=== PATIENT | male | born 1945 | race Two or more races ===

== ENCOUNTER 2017-12-16 01:14 | Inpatient (IN) | payer MEDICARE ==
[~2017-12-16] VITALS: Ht 175.3 cm; Wt 97.5 kg
--- NOTE | 2017-12-16 01:25 | NUR ---
MEDICALLY CLEARED BY DR CHESTER
[2017-12-16] MEDS ORDERED: ASPI-605 PO (01:29)
[2017-12-16] MEDS ORDERED: ZOLP5TAB8 PO (01:29)
[2017-12-16] MEDS ORDERED: RISP3TAB14 PO (01:29)
[2017-12-16] MEDS ORDERED: DOCU100C36 PO (01:29)
[2017-12-16] MEDS ORDERED: SERT100T PO (01:29)
[2017-12-16] MEDS ORDERED: LORA1TAB PO (01:29)
[2017-12-16] MEDS ORDERED: ACET-2154 PO (01:29)
--- NOTE | 2017-12-16 01:35 | NUR ---
TRANSFERED TO [facility]. NO DISTRESS NOTED
--- NOTE | 2017-12-16 01:40 | NUR ---
GPS: 72 YEAR OLD MALE ADMITTED TO [facility] FOR 5150/GD UNDER DR JOHN/MICHAEL, FROM ER VIA [facility]. A/O X3 AMBULATORY. COOPERATIVE WITH NURSING CARE. NO AGITATION NOTED.ASSISTED WITH SHOWER. V/S WNL.CONTINUE MONITORING FOR SAFETY.
[2017-12-16] MEDS ORDERED: MAGNESIUM HYDROXIDE 30 ML LIQUID UDC PO PRN (02:15)
[2017-12-16 03:52] VITALS: BP 105/65
[2017-12-16] MEDS: LORAZEPAM 1 MG TABLET PO PRN ×2 (04:02→09:26)
--- NOTE | 2017-12-16 06:40 | NUR ---
GPS: REMAIN COOPERATIVE WITH NURSING CARE. ATIVAN GIVEN FOR ANXIETY PER PATIENT REQUESTED. NO SLEEP. RESTING IN BED COMFORTABLY. CONTINUE PLAN OF CARE.
[2017-12-16 07:30] VITALS: BP 103/57
[2017-12-16] MEDS: ACETAMINOPHEN 325 MG TABLET PO PRN ×3 (07:44→21:51)
--- NOTE | 2017-12-16 08:00 | NUR ---
GPS: Pt awake, ambulating ad nimo in unit with standby assist as needed. Pt A&O x4. Romansh speaking. No acute distress noted. Continues to be cooperative with plan of care. Able to make needs known. Noted pacing hallways in the beginning of shift. Complained of mild headache and requested for Tylenol PRN. Administered as ordered. Will monitor for effectiveness. Will continue to monitor for change.
--- NOTE | 2017-12-16 10:48 | NUR ---
GPS: Pt requesting for Zoloft. Per pt, he was taking Zoloft at home BID x20yrs and needs to continue the medication. Spoke with Dr. Vela and relayed pt's concern. Per MD, he will come and examine pt prior to prescribing psych medication. Notified pt and pt became slightly agitated. Verbalized to just discharge him. Explained risks and benefits to pt. Gave pt time to calm down. Will continue to monitor for further behavioral manifestations.
--- NOTE | 2017-12-16 12:50 | NUR ---
Followed up with Ezra Slater DNP regarding pt's med reconciliation. Per Ezra, he will do it. No new orders at this time.
--- NOTE | 2017-12-16 15:49 | NUR ---
Initial DC Plan: Patient currently lives at home with his roommate Monserrat[[birth year] 09/[address] [place], [place] ; [phone]]. Patient's daughter Danelle [[phone]] feels patient should go to a SNF upon discharge. SW will follow up with MD, patient, and patient's roommate and daughter to discuss most appropriate discharge plans. Patient will be provided a brief substance abuse intervention for alcohol abuse. SW will form a safe and proper discharge.
[2017-12-16 16:20] VITALS: BP 129/65
[2017-12-16] MEDS ORDERED: ACETAMINOPHEN 325 MG TABLET PO PRN (17:30)
--- NOTE | 2017-12-16 18:23 | NUR ---
GPS: Pt remained in his room for most of the day. Pt lacked interest in attending activities and socializing with peers. Noted talking to himself at times. Mild pain managed with Tylenol. Ativan 1mg PO PRN given for anxiety. Seen and examined by Erza Slater, ALEJANDRO and meds reconciled. Per Danelle (daughter), her sister will come tomorrow to bring clothes for pt. Gave her instructions on what is appropriate to bring for pt safety and she agreed.
[2017-12-16 20:00] VITALS: BP 101/61
--- NOTE | 2017-12-16 21:30 | NUR ---
Patient complains of headache and asked for a pain pill. Tylenol PRN given per MD order. New orders for Buspar and Risperdal administered. Patient cooperative and compliant.
[2017-12-16] MEDS: busPIRone 5 MG TABLET PO SCH (21:50)
[2017-12-16] MEDS: risperiDONE 1 MG TABLET PO SCH (21:50)
[2017-12-17] MEDS: MAG HYDROX/AL HYDROX/SIMETH 30 ML LIQUID UDC PO PRN ×4 (00:42→22:26)
[2017-12-17] MEDS: ACETAMINOPHEN 325 MG TABLET PO PRN ×2 (05:30→11:42)
--- NOTE | 2017-12-17 05:57 | NUR ---
Maalox PRN given as ordered for upset stomach at 0045; Tylenol administered for headache at 0530. Will continue to monitor.
--- NOTE | 2017-12-17 06:56 | NUR ---
Pt sleeping at this time, no s/s of distress. Slept intermittently. Meds given, all other needs attended. Frequent checks done. Endorsed accordingly.
[2017-12-17 07:30] VITALS: BP 97/49
[2017-12-17] MEDS: ASPIRIN EC 81 MG TABLET.DR PO SCH (09:11)
[2017-12-17] MEDS: SERTRALINE HCL 100 MG TABLET PO SCH (09:11)
[2017-12-17] MEDS: risperiDONE 1 MG TABLET PO SCH ×2 (09:12→20:33)
[2017-12-17] MEDS: busPIRone 5 MG TABLET PO SCH ×3 (09:12→17:17)
[2017-12-17] MEDS: DOCUSATE SODIUM 100 MG CAPSULE PO SCH ×2 (09:12→17:17)
[2017-12-17] MEDS: LORAZEPAM 1 MG TABLET PO PRN (11:42)
--- NOTE | 2017-12-17 13:26 | NUR ---
at approxiatemately 12pm i was informed that patient had fallen in his room earlier in day unwitnessed and no evidence of bruising or c/o pain on any body area. patient c/o headache and medicated with tylenol 650mg for headache . patient has been ambulatoryseen by DR. blade VO AND PT DENIED ANY FALL OR ANY INJURY, BUT C/O SHOULDER PAIN. WILL CONTINUE TO MONITOR C/O RIGHT SHOULDER PAIN WILL CALL MEDICAL DOCTOR FOR XRAYS OF RIGHT SHOULDER PATIENT REMAINS ASYMPTOMATIC AND AMBULATORY ON UNIT OFF AND ON
[2017-12-17 15:48] VITALS: BP 109/63
[2017-12-17 20:24] VITALS: BP 108/64
[2017-12-18] MEDS: SUCRALFATE 1 G/10 ML LIQUID UDC PO SCH ×5 (00:33→23:16)
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
[2017-12-18 07:30] VITALS: BP 109/67
[2017-12-18] MEDS: busPIRone 5 MG TABLET PO SCH ×3 (08:56→17:23)
[2017-12-18] MEDS: ASPIRIN EC 81 MG TABLET.DR PO SCH (08:56)
[2017-12-18] MEDS: DOCUSATE SODIUM 100 MG CAPSULE PO SCH ×2 (08:56→17:24)
[2017-12-18] MEDS: risperiDONE 1 MG TABLET PO SCH ×2 (08:56→20:19)
[2017-12-18] MEDS: SERTRALINE HCL 100 MG TABLET PO SCH (08:56)
[2017-12-18] MEDS: FENOFIBRATE NANOCRYSTALLIZED 48 MG TABLET PO SCH (10:32)
[2017-12-18 16:05] VITALS: BP 125/83
--- NOTE | 2017-12-18 18:05 | NUR ---
PATIENT REMAINS ISOLATIVE AND WITHDRAWN WITH NO DISCLOUSURE TO THIS STAFF , NO C/O PAIN OR DISTRESS ,ORAL INTAKEN Q S AND VOIDING NO BM PER PT , CONTINUE TO MONITOR FOR SAFETY
[2017-12-18 20:00] VITALS: BP 117/68
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
[2017-12-19] MEDS: SUCRALFATE 1 G/10 ML LIQUID UDC PO SCH ×4 (06:09→20:52)
[2017-12-19 07:30] VITALS: BP 118/68
[2017-12-19] MEDS: ASPIRIN EC 81 MG TABLET.DR PO SCH (08:26)
[2017-12-19] MEDS: busPIRone 5 MG TABLET PO SCH ×3 (08:26→16:30)
[2017-12-19] MEDS: risperiDONE 1 MG TABLET PO SCH (08:26)
[2017-12-19] MEDS: SERTRALINE HCL 100 MG TABLET PO SCH (08:26)
[2017-12-19] MEDS: FENOFIBRATE NANOCRYSTALLIZED 48 MG TABLET PO SCH (08:27)
[2017-12-19] MEDS: DOCUSATE SODIUM 100 MG CAPSULE PO SCH ×2 (08:27→16:30)
--- NOTE | 2017-12-19 11:54 | NUR ---
Firearms Reporting: DAVIDE submitted Mental Health Report to [facility] on 12/19.
[2017-12-19 15:36] VITALS: BP 118/73
[2017-12-19 20:00] VITALS: BP 140/79
[2017-12-19] MEDS: risperiDONE 2 MG TABLET PO SCH (20:52)
--- NOTE | 2017-12-19 21:00 | NUR ---
RECEIVED PATIENT IN HIS BED. HE IS NOTED A/O X 2, HE IS ABLE TO AMBULATE WITH STEADY GAIT WITH THE AID OF A FWW AND ABLE TO MAKE HIS NEEDS KNOWN. PATIENT ABLE TO MAKE GOOD EYE CONTACT. HOWEVER; NOTED WITHDRAWN, DELUSIONAL (BEING CONTROLLED BY SOMETHING INSIDE HIS HEAD) HE STATED, "THERE IS SOMETHING IN MY HEAD THAT IS BEING THERE FOR A LONG TIME". PATIENT NOTED WITH FAIR INSIGHT AND JUDGMENT TO THE REASON FOR HIS HOSPITALIZATION TO M[facility]. HE STATED, "THIS MEDICATION IS HELPING ME". HE IS COMPLIANT WITH MEDICATION REGIMENT, DIET AND PLAN OF CARE ST THIS TIME. DENIES SI/HI. DENIES AH/VH/ HE IS ABLE TO CFS. SAFETY EMPHASIS. WILL CONTINUE TO MONITOR CLOSELY.
[2017-12-20] MEDS: TEMAZEPAM 7.5 MG CAPSULE PO PRN ×2 (01:14→23:33)
--- NOTE | 2017-12-20 01:15 | NUR ---
PATIENT NOTED AWAKE IN HIS BED, UNABLE TO FALL ASLEEP. TEMAZEPAM 7.5MG PO PRN WAS GIVEN FOR INSOMNIA. WILL CONTINUE TO MONITOR CLOSELY.
--- NOTE | 2017-12-20 02:17 | NUR ---
PATIENT NOTED SLEEPING COMFORTABLE IN HIS BED.
[2017-12-20] MEDS: ACETAMINOPHEN 325 MG TABLET PO PRN ×3 (06:22→16:54)
[2017-12-20] MEDS: SUCRALFATE 1 G/10 ML LIQUID UDC PO SCH ×4 (06:42→20:37)
[2017-12-20 07:30] VITALS: BP 107/65
[2017-12-20] MEDS: busPIRone 5 MG TABLET PO SCH ×3 (08:28→16:45)
[2017-12-20] MEDS: risperiDONE 2 MG TABLET PO SCH ×2 (08:28→20:37)
[2017-12-20] MEDS: SERTRALINE HCL 100 MG TABLET PO SCH (08:29)
[2017-12-20] MEDS: DOCUSATE SODIUM 100 MG CAPSULE PO SCH ×2 (08:29→16:45)
[2017-12-20] MEDS: ASPIRIN EC 81 MG TABLET.DR PO SCH (08:29)
[2017-12-20] MEDS: FENOFIBRATE NANOCRYSTALLIZED 48 MG TABLET PO SCH (08:30)
[2017-12-20 16:11] VITALS: BP 112/69
[2017-12-20 20:26] VITALS: BP 106/63
[2017-12-20 20:29] VITALS: BP 123/65
[2017-12-21] MEDS: SUCRALFATE 1 G/10 ML LIQUID UDC PO SCH ×4 (06:30→20:50)
--- NOTE | 2017-12-21 06:44 | NUR ---
RECEIVED Pt IN BED AWAKE, A+Ox2 TO SELF AND PLACE. SOMEWHAT IRRITABLE, Pt STATED, I DON'T CARE WHAT DAY IT IS, WHEN ASKED WHAT BROUGHT HIM TO THE HOSPITAL, Pt STATED, I DON'T FEEL LIKE TALKING ABOUT IT. Pt IS GUARDED AND GIVES MINIMAL DISCLOSURE. Pt PRESENTS SOMEWHAT ANXIOUS AND RESTLESS, HAS EPISODES WHERE HE IS DEMANDING HIS CLOTHING THAT IS BEING LAUNDERED AND EXTRA BLANKETS. PER Pt REQUEST, RESTORIL 7.5mg ADMINISTERED WITH GOOD EFFECT. Pt PRESENTS WITH THOUGHT BLOCKING AND DELAYED, PRESSURED SPEECH. DENIES SI/HI/AH/VH. EXHIBITS BLUNTED AFFECT. COMPLIANT WITH HS MEDICATIONS, COOPERATIVE WITH CARE. VS STABLE, DENIES PAIN, IN NO ACUTE PHYSICAL DISTRESS. SLEPT 5 HOURS. NO COMBATIVE OR AGGRESSIVE BEHAVIORS DURING SHIFT.
[2017-12-21 07:30] VITALS: BP 112/62
[2017-12-21] MEDS: FENOFIBRATE NANOCRYSTALLIZED 48 MG TABLET PO SCH (08:10)
[2017-12-21] MEDS: ACETAMINOPHEN 325 MG TABLET PO PRN ×2 (08:10→20:57)
[2017-12-21] MEDS: ASPIRIN EC 81 MG TABLET.DR PO SCH (08:10)
[2017-12-21] MEDS: SERTRALINE HCL 100 MG TABLET PO SCH (08:10)
[2017-12-21] MEDS: risperiDONE 2 MG TABLET PO SCH ×2 (08:10→20:50)
[2017-12-21] MEDS: DOCUSATE SODIUM 100 MG CAPSULE PO SCH ×2 (08:10→16:14)
[2017-12-21] MEDS: busPIRone 5 MG TABLET PO SCH ×3 (08:10→16:14)
[2017-12-21 15:21] VITALS: BP 100/50
[2017-12-21 20:17] VITALS: BP 97/54
--- NOTE | 2017-12-21 21:00 | NUR ---
RECEIVED PATIENT IN THE HALLWAY. HE IS NOTED A/O X 2. HE IS ABLE TO AMBULATE WITH STEADY GAIT WITH THE AID OF A FWW. PATIENT NOTED LESS WITHDRAWN, FAIR INSIGHT AND JUDGMENT TO THE REASON FOR HIS ADMISSION. HE DENIES HEARING VOICES, DENIES SI/AH/VH. HE STATED, "RISPERIDONE SINCE TO HELP ME". SHE ALSO C/O MILD LOWER BACK PAIN. TYLENOL 650MG PO PRN WAS GIVEN FOR PAIN. PT COMPLIANT WITH MEDICATION REGIMENT, DIET AND PLAN OF CARE AT THIS TIME. WILL CONTINUE TO MONITOR.
--- NOTE | 2017-12-21 22:00 | NUR ---
TYLENOL 650MG PO PRN FOR BACK PAIN WAS EFFECTIVE. PT SLEEPING COMFORTABLE IN HIS ROOM.
[2017-12-22] MEDS: LORAZEPAM 1 MG TABLET PO PRN (03:25)
--- NOTE | 2017-12-22 03:30 | NUR ---
PATIENT APPROACHED THE NURSING STATION AND STATED THAT HE IS FEELING ANXIOUS AND UNABLE TO GO BACK TO SLEEP. ATIVAN 1MG PO PRN WAS GIVEN. WILL CONTINUE TO MONITOR CLOSELY.
[2017-12-22] MEDS: ACETAMINOPHEN 325 MG TABLET PO PRN ×2 (05:59→13:27)
--- NOTE | 2017-12-22 06:04 | NUR ---
ATIVAN 1MG PO PRN FOR ANXIETY PARTIALLY EFFECTIVE. PATIENT IN THE DAY ROOM WATCHING TV. HE REQUESTED PO PAIN MEDICATION FOR MILD LOWER BACK PAIN. TYLENOL 650MG PO PRN WAS GIVEN. PATIENT SLEPT 5.30HRS THROUGH THE NIGHT. HE REFUSED SLEEPING PILL LAST NIGHT. WILL CONTINUE TO MONITOR.
[2017-12-22] MEDS: SUCRALFATE 1 G/10 ML LIQUID UDC PO SCH ×4 (06:42→20:07)
[2017-12-22 08:00] VITALS: BP 105/51
[2017-12-22] MEDS: risperiDONE 1 MG TABLET PO SCH ×2 (09:07→20:07)
[2017-12-22] MEDS: SERTRALINE HCL 100 MG TABLET PO SCH (09:07)
[2017-12-22] MEDS: FENOFIBRATE NANOCRYSTALLIZED 48 MG TABLET PO SCH (09:07)
[2017-12-22] MEDS: busPIRone 5 MG TABLET PO SCH ×3 (09:07→16:46)
[2017-12-22] MEDS: ASPIRIN EC 81 MG TABLET.DR PO SCH (09:08)
[2017-12-22] MEDS: DOCUSATE SODIUM 100 MG CAPSULE PO SCH ×2 (09:08→16:46)
--- NOTE | 2017-12-22 12:43 | NUR ---
patient remains isolative and withdrawn in room without self disclousure , denies r i s and no c/o pain encourage to ventilation feelings, continue to monitor.
[2017-12-22 16:00] VITALS: BP 122/75
[2017-12-22 20:00] VITALS: BP 102/51
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
[2017-12-23] MEDS: TEMAZEPAM 7.5 MG CAPSULE PO PRN (00:10)
--- NOTE | 2017-12-23 00:17 | NUR ---
PATIENT NOTED AWAKE IN HIS ROOM. PT WAS OFFERED A "SLEEPING PILL" AND HE AGREED. TEMAZEPAM 7.5MG PO PRN FOR INSOMNIA WAS GIVEN. WILL CONTINUE TO MONITOR CLOSELY.
--- NOTE | 2017-12-23 06:20 | NUR ---
PATIENT SLEPT FOR APPROX 3.30HRS THROUGH THE NIGHT. CONTINUE MEDICATION COMPLIANT.
[2017-12-23] MEDS: SUCRALFATE 1 G/10 ML LIQUID UDC PO SCH ×4 (06:50→20:02)
[2017-12-23 07:30] VITALS: BP 104/57
--- NOTE | 2017-12-23 08:00 | NUR ---
RECEIVE Pt IN BED, AWAKE, A/O X 2, ABLE TO MAKE HIS NEEDS KNOWN AND ABLE TO AMBULATE WITH STEADY GAIT. Pt IS CALM AND COMPLIANT WITH MEDS AND CARE STAFF. SAFETY WAS EMPHASIZED, Pt ADVISED TO USE FWW WHEN AMBULATING. WILL CONTINUE TO MONITOR.
[2017-12-23] MEDS: risperiDONE 1 MG TABLET PO SCH ×2 (08:45→20:02)
[2017-12-23] MEDS: SERTRALINE HCL 100 MG TABLET PO SCH (08:45)
[2017-12-23] MEDS: busPIRone 5 MG TABLET PO SCH ×3 (08:45→16:44)
[2017-12-23] MEDS: ASPIRIN EC 81 MG TABLET.DR PO SCH (08:45)
[2017-12-23] MEDS: DOCUSATE SODIUM 100 MG CAPSULE PO SCH ×2 (08:45→16:44)
[2017-12-23] MEDS: FENOFIBRATE NANOCRYSTALLIZED 48 MG TABLET PO SCH (08:46)
[2017-12-23] MEDS: ACETAMINOPHEN 325 MG TABLET PO PRN (11:07)
--- NOTE | 2017-12-23 11:15 | NUR ---
Pt COMPLAINED OF MILD LOWER BACK PAIN, GIVEN TYLENOL ES 650 MG PO PRN. WILL CONTINUE TO MONITOR Pt.
[2017-12-23 14:29] VITALS: BP 106/53
[2017-12-23 20:03] VITALS: BP 116/54
[2017-12-23] MEDS ORDERED: risperiDONE 2 MG TABLET PO SCH (21:00)
[2017-12-23] MEDS ORDERED: risperiDONE 0.5 MG TABLET PO SCH (21:00)
[2017-12-24] MEDS: LORAZEPAM 1 MG TABLET PO PRN (02:33)
--- NOTE | 2017-12-24 02:35 | NUR ---
GPS: PATIENT C/O ANXIETY. ATIVAN 1 MG PO GIVEN PER PATIENT REQUEST.
--- NOTE | 2017-12-24 03:35 | NUR ---
GPS: PATIENT IS CALM NOW.RESTING IN BED COMFORTABLY.
--- NOTE | 2017-12-24 06:34 | NUR ---
GPS: REMAIN CALM AND COOPERATIVE WITH MEDICATIONS AND CARE. SLEPT 5:30 HRS THROUGH THE NIGHT. NO BEHAVIOR PROBLEM NOTED AT THIS TIME.CONTINUE PLAN OF CARE.
[2017-12-24] MEDS: SUCRALFATE 1 G/10 ML LIQUID UDC PO SCH ×4 (06:39→20:02)
[2017-12-24 08:00] VITALS: BP 109/62
--- NOTE | 2017-12-24 09:15 | NUR ---
RECEIVED Pt IN BED, AWAKE, A/O X 2, PLEASANT AND CALM, COMPLIANT WITH MEDS AND COOPERATIVE WITH CARE STAFF, NO AGGRESSIVE BEHAVIOR NOTED. CLEAR BUT NOTED PRESSURED SPEECH, Pt IS ABLE TO VERBALIZE NEEDS AND CONTINUES TO AMBULATE INDEPENDENTLY WITH FWW.
[2017-12-24] MEDS: SERTRALINE HCL 100 MG TABLET PO SCH (09:21)
[2017-12-24] MEDS: FENOFIBRATE NANOCRYSTALLIZED 48 MG TABLET PO SCH (09:21)
[2017-12-24] MEDS: ASPIRIN EC 81 MG TABLET.DR PO SCH (09:21)
[2017-12-24] MEDS: DOCUSATE SODIUM 100 MG CAPSULE PO SCH ×2 (09:21→16:35)
[2017-12-24] MEDS: busPIRone 5 MG TABLET PO SCH ×3 (09:21→16:36)
[2017-12-24] MEDS: ACETAMINOPHEN 325 MG TABLET PO PRN ×2 (12:09→20:56)
--- NOTE | 2017-12-24 12:12 | NUR ---
Pt WALKED TO NURSING STATION COMPLAINING OF HEADACHE, REQUESTED TYLENOL. ADMINISTERED TYLENOL 650 MG PO PRN.
[2017-12-24 15:38] VITALS: BP 87/46
--- NOTE | 2017-12-24 16:40 | NUR ---
CHECKED Pt VS, DECREASED BP OF 87/46, HR OF 90. Pt WAS ASSESSED, NO DISTRESS NOTED, STABLE CONDITION, Pt VERBALIZED FEELING WELL AND DENIED ANY DISCOMFORT OR DIZZINESS. Pt ENCOURAGED BY NURSE TO DRINK PLENTY OF FLUIDS, BED REPOSITIONED TO ELEVATE LEGS. WILL HOLD THE SCHEDULED BUSPIRONE HCL 5 MG PO AT THIS TIME, ADMINISTERED OTHER SCHEDULED MEDS. WILL CONTINUE TO MONITOR Pt BP CLOSELY.
[2017-12-24 19:43] VITALS: BP 115/63
[2017-12-24] MEDS: risperiDONE 1 MG TABLET PO SCH (20:02)
[2017-12-25] MEDS: ACETAMINOPHEN 325 MG TABLET PO PRN ×3 (06:12→19:44)
[2017-12-25] MEDS: SUCRALFATE 1 G/10 ML LIQUID UDC PO SCH ×4 (06:38→20:02)
--- NOTE | 2017-12-25 06:47 | NUR ---
RECEIVED Pt SLEEPING IN BED, AROUSES EASILY. A+Ox2 TO NAME AND PLACE. Pt REPORTS FEELING A LOT BETTER, BUT STILL REMAINS WITHDRAWN, ISOLATIVE, AND RECLUSIVE TO HIS ROOM. Pt GUARDED AND GIVES MINIMAL DISCLOSURE. APPEARS ANXIOUS, DECLINES PRN ATIVAN AT THIS TIME. COMPLIANT WITH SCHEDULED MEDICATIONS, COOPERATIVE WITH CARE AND STAFF DIRECTION. EXHIBITS BLUNTED AFFECT AND THOUGHT BLOCKING. C/O 610 LOWER BACK PAIN, TYLENOL 650mg ADMINISTERED WITH GOOD EFFECT AT 2055 AND AGAIN AT 611. VS STABLE, IN NO ACUTE PHYSICAL DISTRESS. NO AGGRESSIVE OR COMBATIVE BEHAVIORS.
--- NOTE | 2017-12-25 06:48 | NUR ---
SLEPT 7 HOURS
[2017-12-25 08:00] VITALS: BP 105/63
[2017-12-25] MEDS: DOCUSATE SODIUM 100 MG CAPSULE PO SCH ×2 (08:41→16:56)
[2017-12-25] MEDS: SERTRALINE HCL 100 MG TABLET PO SCH (08:41)
[2017-12-25] MEDS: busPIRone 5 MG TABLET PO SCH ×3 (08:41→16:55)
[2017-12-25] MEDS: FENOFIBRATE NANOCRYSTALLIZED 48 MG TABLET PO SCH (08:41)
[2017-12-25] MEDS: risperiDONE 1 MG TABLET PO SCH ×2 (08:41→20:02)
[2017-12-25] MEDS: ASPIRIN EC 81 MG TABLET.DR PO SCH (08:41)
--- NOTE | 2017-12-25 09:00 | NUR ---
RECEIVED Pt IN BED SLEEPING, EASILY AROUSED, A/O X 2. Pt ABLE TO AMBULATE INDEPENDENTLY AND MAKE NEEDS KNOWN. COMPLIANT WITH MEDS AND CARE STAFF, BUT STILL ISOLATIVE AND PREFERS TO STAY IN BED. NO ANXIETY OR AGGRESSIVE BEHAVIORS NOTED. WILL CLOSELY MONITOR BP THROUGHOUT SHIFT IT TENDS TO DECREASE THROUGHOUT THE DAY DUE TO RISPERDAL PRESCRIPTION. CURRENTLY IN STABLE CONDITION.
[2017-12-25 13:00] VITALS: BP 112/61
--- NOTE | 2017-12-25 13:21 | NUR ---
Pt COMPLAINED OF 5/10 LOWER BACK PAIN AND REQUESTED FOR TYLENOL, GIVEN TYLENOL 650 MG PO PRN. RECHECKED VITAL SIGNS, BP OF 112/61 WITH HR OF 89. Pt IS IN STABLE CONDITION WITH NO S/S OF METABOLIC DISTRESS. WILL ADMINISTER ROUTINE MEDS ORDERED.
[2017-12-25 16:20] VITALS: BP 102/54
[2017-12-25 20:00] VITALS: BP 117/64
[2017-12-26] MEDS: ACETAMINOPHEN 325 MG TABLET PO PRN ×2 (05:55→12:09)
[2017-12-26] MEDS: SUCRALFATE 1 G/10 ML LIQUID UDC PO SCH ×4 (06:49→21:55)
--- NOTE | 2017-12-26 07:20 | NUR ---
Bedside report given by nightshift RN, pt is stable. No significant change in condition last night. Pt sleeping comfortably. Easily arousable to name. Resp even and unlabored. No acute distress noted. Will cont to monitor for change.
[2017-12-26 07:30] VITALS: BP 98/55
[2017-12-26] MEDS: DOCUSATE SODIUM 100 MG CAPSULE PO SCH ×2 (08:20→16:35)
[2017-12-26] MEDS: SERTRALINE HCL 100 MG TABLET PO SCH (08:21)
[2017-12-26] MEDS: busPIRone 5 MG TABLET PO SCH ×3 (08:21→16:35)
[2017-12-26] MEDS: risperiDONE 1 MG TABLET PO SCH ×2 (08:21→20:27)
[2017-12-26] MEDS: FENOFIBRATE NANOCRYSTALLIZED 48 MG TABLET PO SCH (08:21)
[2017-12-26] MEDS: ASPIRIN EC 81 MG TABLET.DR PO SCH (08:21)
[2017-12-26 15:18] VITALS: BP 101/52
--- NOTE | 2017-12-26 15:52 | NUR ---
Discharge Planning Note: SW spoke with patient who stated he is willing to go to a residential facility if it is in the [facility]. Patient was assessed by [facility] at [facility] [phone]]. DAVIDE will follow up with Viet to see if patient has been accepted at the facility.
--- NOTE | 2017-12-26 18:00 | NUR ---
GPS: Pt remained stable during shift. Pt stayed in his room most of the day. Isolative and withdrawn. Preferred not to attend activities. Denies SI/HI, CFS. VS stable. No episode of responding to internal stimuli noted. Will cont to monitor.
[2017-12-26 20:00] VITALS: BP 136/80
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
[2017-12-27] MEDS: SUCRALFATE 1 G/10 ML LIQUID UDC PO SCH ×4 (06:49→20:46)
--- NOTE | 2017-12-27 06:57 | NUR ---
PATIENT SLEPT FOR APPROX 5.30 HRS THROUGH THE NIGHT. HE CONTINUE MEDICATION COMPLIANT, PLEASANT AND COOPERATIVE.
[2017-12-27 07:30] VITALS: BP 90/49
[2017-12-27] MEDS: ASPIRIN EC 81 MG TABLET.DR PO SCH (08:49)
[2017-12-27] MEDS: FENOFIBRATE NANOCRYSTALLIZED 48 MG TABLET PO SCH (08:49)
[2017-12-27] MEDS: SERTRALINE HCL 100 MG TABLET PO SCH (08:49)
[2017-12-27] MEDS: DOCUSATE SODIUM 100 MG CAPSULE PO SCH ×2 (08:49→16:52)
[2017-12-27] MEDS: busPIRone 5 MG TABLET PO SCH ×3 (08:49→16:51)
[2017-12-27] MEDS: risperiDONE 1 MG TABLET PO SCH ×2 (08:49→20:47)
[2017-12-27 15:13] VITALS: BP 105/60
--- NOTE | 2017-12-27 18:39 | NUR ---
PATIENTS REMAINS RIS WITH COMPUTER MENTIONED AND WANTS TO GO HOME TO HIS APT STATED BY PATIENT, UP FOR MEALS AND BATHROOM AND TO DESK FOR DISCHARGE LITTLE ANGRY AT TIMES .
[2017-12-27 20:00] VITALS: BP 112/63
--- NOTE | 2017-12-27 20:30 | NUR ---
RECEIVED PATIENT IN HIS ROOM. HE WAS NOTED AWAKE A/O X 3. HE IS ABLE TO AMBULATE WITH STEADY GAIT. HE CONTINUE WITHDRAWN TO HIS ROOM. LOW MOOD, BLUNTED AFFECT. UPON INTERVIEW, PATIENT DENIES AH/VH/SI. HE CONTINUE THINKING THAT A COMPUTER IS CONTROLLING HIS BODY. HOWEVER, HE STATED THAT HE USED TO WORK WITH CHEMICALS AND PAINTS MANY YEARS AGO, AND, A RESULTS OF BREATHING THOSE FUMES, HIS HEAD IS MESSED UP. PATIENT IS CALM PLEASANT, COOPERATIVE WITH MEDICATION REGIMENT, PLAN OF CARE AND DIET. SAFETY WAS EMPHASIS. WE WILL CONTINUE TO MONITOR CLOSELY.
[2017-12-28] MEDS: TEMAZEPAM 7.5 MG CAPSULE PO PRN (00:32)
--- NOTE | 2017-12-28 00:40 | NUR ---
PATIENT CAME TO THE NURSING STATION REQUESTING A "SLEEPING PILL". TEMAZEPAM 7.5MG PO PRN WAS GIVEN PER PATIENT REQUEST AND NURSING ASSESSMENT. WILL CONTINUE TO MONITOR.
--- NOTE | 2017-12-28 07:00 | NUR ---
RECEIVED PATIENT ON BED, NO ACUTE DISTRESS NOTED. NO SI NOTED OR THOUGHT OF SELF HARM WHEN ASKED. COMPLIANT WITH CARE AND MEDICATIONS. NO COMPLAINTS OF PAIN/DISCOMFORT. VITAL SIGNS WNL. COMFORT MEASURES PROVIDED. WILL CONTINUE TO MONITOR CLOSELY.
[2017-12-28] MEDS: SUCRALFATE 1 G/10 ML LIQUID UDC PO SCH ×2 (07:06→11:43)
[2017-12-28 07:30] VITALS: BP 94/55
[2017-12-28] MEDS: risperiDONE 1 MG TABLET PO SCH (08:49)
[2017-12-28] MEDS: busPIRone 5 MG TABLET PO SCH ×2 (08:49→12:00)
[2017-12-28] MEDS: SERTRALINE HCL 100 MG TABLET PO SCH (08:49)
[2017-12-28] MEDS: FENOFIBRATE NANOCRYSTALLIZED 48 MG TABLET PO SCH (08:49)
[2017-12-28] MEDS: DOCUSATE SODIUM 100 MG CAPSULE PO SCH (08:49)
[2017-12-28] MEDS: ASPIRIN EC 81 MG TABLET.DR PO SCH (08:49)
[2017-12-28] MEDS: ACETAMINOPHEN 325 MG TABLET PO PRN (11:43)
--- NOTE | 2017-12-28 13:58 | NUR ---
DC Note: Patient will be discharged to [facility] [[address] [place] [address]; [phone]] via private transportation. DAVIDE spoke with placement agent Apurva [[phone]] who stated she will pharmacy picking tech patient between 5pm and 6pm. Patient is alert and oriented x3 and denies SI and HI. He is aware and agreeable to discharge plans. SW notified patient's daughter Danelle [[phone]] of discharge plans. Patient will follow up with his reading teacher Dr. Mikey Morin [[id number], [place] [address]; ]. Patient was provided a list of referrals for outpatient psychiatrists including Dr. Barrera [[phone]], Dr. Olmos [[phone]], and Dr. Neely [[phone]]. Patient was provided with additional outpatient mental health resources to [facility] , [facility] , and the [place] [facility] . Patient was provided a brief substance abuse intervention for alcohol abuse. Patient was provided substance abuse referrals for [facility] [ ], [facility] [ ], and [facility] [ ] and was encouraged to present at [facility] for intake on December 29 at 9am.
[2017-12-28 14:32] VITALS: BP 102/59
--- NOTE | 2017-12-28 16:38 | NUR ---
PATIENT DISCHARGED IN STABLE CONDITION. DISCHARGE INSTRUCTIONS AND PAPERS GIVEN AND EXPLAINED TO PATIENT, PATIENT VERBALIZED UNDERSTANDING. WENT OVER VALUABLES LIST WITH PATIENT, VALUABLES LIST COMPLETED AND RETURNED TO PATIENT. MEDICATION EDUCATION EXPLAINED TO PATIENT, VERBALIZED UNDERSTANDING. PICKED UP BY HANNA FROM [facility], LEFT [facility]HU UNIT VIA WHEELCHAIR WITH L[address]. PATIENT LEFT VIA PRIVATE TRANSPORTATION PROVIDED BY [facility] AND [facility].
== END 2017-12-28 16:45 | DRG 885 ==
LOC: ER 01:19 → GPS 01:29 → EDBD 01:29 → GPS 12-18 12:06
PROVIDERS: ADMIT Psychiatry & Neurology Psychiatry; ATTEND Internal Medicine
DX: F25.9 Schizoaffective disorder, unspecified (principal); E78.5 Hyperlipidemia, unspecified; I10 Essential (primary) hypertension; I25.10 Atherosclerotic heart disease of native coronary artery without angina pectoris; F32.9 Major depressive disorder, single episode, unspecified; F41.9 Anxiety disorder, unspecified; Z72.89 Other problems related to lifestyle; L98.8 Other specified disorders of the skin and subcutaneous tissue; Z91.5 Personal history of self-harm
CPT/HCPCS: 36415; 73030; A4663